=== PATIENT | male | born 1970 | race Caucasian/White ===

== ENCOUNTER 2020-02-11 01:50 | Emergency (ER) | payer BC, OTHER ==
[~2020-02-11] VITALS: Ht 167.6 cm; Wt 92.1 kg
[2020-02-11 01:55] VITALS: Ht 167.6 cm; Wt 92.1 kg
[2020-02-11 03:35] VITALS: BP 111/82
== END 2020-02-11 03:35 | disposition home or self-care (01) ==
LOC: ED 01:50
DX: R04.0 Epistaxis (principal); I10 Essential (primary) hypertension